=== PATIENT | female | born 1990 | race Hispanic/Latino ===

== ENCOUNTER 2019-04-17 09:20 | Inpatient (IN) | payer BC ==
[~2019-04-17] VITALS: Ht 172.7 cm; Wt 88.5 kg
[2019-04-17] MEDS ORDERED: MAGNESIUM SULFATE 1,000 ML IV PRN (09:24)
[2019-04-17] MEDS ORDERED: LACTATED RINGERS 1000ML 1,000 ML IV PRN (09:24)
[2019-04-17] MEDS ORDERED: LACTATED RINGERS 1000ML 1,000 ML IV SCH (09:24)
[2019-04-17] MEDS ORDERED: CALCIUM GLUCONATE 1 GM/10 ML VIAL IV PRN (09:30)
[2019-04-17] MEDS ORDERED: OXYTOCIN-LR 20 UNITS/1000 ML 1,000 ML IV SCH (09:30)
[2019-04-17] MEDS ORDERED: MAGNESIUM 4GM PREMIX 100ML 100 ML IV PRN (09:30)
[2019-04-17 09:59] LABS: APPEARANCE,URINE Clear (CLEAR); BILIRUBIN,URINE Negative (NEGATIVE); COLOR,URINE Yellow (YELLOW); GLUCOSE, URINE (UA) Negative (NEGATIVE); KETONES,URINE Negative (NEGATIVE); LEUKOCYTE ESTERASE ,URINE Negative (NEGATIVE); NITRATE,URINE Negative (NEGATIVE); OCCULT BLOOD,URINE Negative (NEGATIVE); PH,URINE 6.5 (5.0-8.0); PROTEIN,URINE POS 1+ mg/dL (NEGATIVE); UROBILINOGEN,URINE 0.2 mg/dL (0.2-1.0)
[2019-04-17 10:01] LABS: BASOPHILS % (AUTO) 0.6 % (0.0-5.0); HEMATOCRIT 32.9 % (36-48); LYMPHOCYTES % (AUTO) 26.7 % (21.0-51.0); MEAN CORPUSCULAR HEMOGLOBIN 25.2 pg (27.0-33.0); MEAN CORPUSCULAR HGB CONC 31.6 g/dL (32.0-36.0); MEAN CORPUSCULAR VOLUME 79.9 fL (79-99); MONOCYTES % (AUTO) 4.6 % (3.0-13.0); NEUTROPHILS % (AUTO) 66.8 % (40.0-77.0); PLATELET COUNT (AUTO) 199 K/uL (130-400); RED BLOOD CELL COUNT(AUTO) 4.12 MIL/uL (4.00-5.50); RED CELL DISTRIBUTION WIDTH 13.7 % (11.0-15.5); WHITE BLOOD COUNT (AUTO) 8.6 K/uL (4.8-10.8)
[2019-04-17 10:15] LABS: BACTERIA,URINE Few /HPF (None Seen); RBC,URINE 0-1 /HPF (0-1); WBC,URINE 0-1 /HPF (0-1)
[2019-04-17 10:28] LABS: INR 0.9 (0.85-1.15); PROTHROMBIN TIME 9.5 SEC (9.6-11.6)
[2019-04-17 10:29] LABS: CREATININE 0.8 mg/dL (0.5-1.5)
[2019-04-17 10:34] LABS: ALBUMIN 2.5 g/dL (3.5-5.0); BILIRUBIN,DIRECT 0.1 mg/dL (0.0-0.3); BILIRUBIN,TOTAL 0.1 mg/dL (0.2-1.0); TOTAL PROTEIN, SERUM 6.7 g/dL (6.0-8.3); URIC ACID 5.3 mg/dL (2.6-7.2)
[2019-04-17 11:05] LABS: PARTIAL THROMBOPLASTIN TIME 27.4 SEC (26.3-35.5)
[2019-04-17] MEDS ORDERED: MEPERIDINE-PF 25 MG/ML SYG ONE (14:26)
[2019-04-17] MEDS ORDERED: LIDOCAINE HCL 1% 20 ML VIAL ONE (14:54)
[2019-04-17] MEDS ORDERED: NALOXONE HCL 0.4 MG/1 ML ML IV PRN (15:15)
[2019-04-17] MEDS ORDERED: ROPIVACAINE 0.2% 100ML VIAL 100 ML EP SCH (15:15)
[2019-04-17] MEDS ORDERED: EPHEDRINE SULFATE 50 MG/ML AMPULE IVP PRN (15:15)
[2019-04-17] MEDS ORDERED: LACTATED RINGERS 500 ML 500 ML IV PRN (15:15)
[2019-04-17] MEDS ORDERED: PROMETHAZINE HCL 25 MG/ML 1ML AMPULE IM SCH (15:30)
[2019-04-17] MEDS ORDERED: MEPERIDINE-PF 50 MG/ML SYG IVP ONE (15:30)
[2019-04-17] MEDS ORDERED: FENTANYL CITRATE PF 50 MCG/1 ML 2ML VIAL ONE (15:31)
[2019-04-17] MEDS ORDERED: AMMONIA 1 EA AMP IH ONE ×2 (18:10→20:36)
[2019-04-17 19:30] VITALS: BP 131/76
[2019-04-17] MEDS ORDERED: BENZOCAINE/LANOLIN/ALOE VERA 60 ML AEROSOL TP PRN (19:45)
[2019-04-17] MEDS ORDERED: WITCH HAZEL 1 PAD TP PRN (19:45)
[2019-04-17] MEDS ORDERED: ACETAMINOPHEN 325 MG TAB PO PRN (19:45)
[2019-04-17] MEDS ORDERED: DIPH,PERTUSS(ACELL),TET VAC/PF 0.5 ML VIAL IM PRN (19:45)
[2019-04-17] MEDS ORDERED: LANOLIN 30GM OINTMENT TP PRN (19:45)
[2019-04-17] MEDS ORDERED: ACETAMINOPHEN-CODEINE 300/30MG TAB PO PRN (19:45)
[2019-04-17] MEDS ORDERED: EPHEDRINE SULFATE 50 MG/ML AMPULE IM PRN (20:15)
[2019-04-17 20:48] LABS: HEMATOCRIT 28.8 % (36-48); MEAN CORPUSCULAR HEMOGLOBIN 25.5 pg (27.0-33.0); MEAN CORPUSCULAR HGB CONC 32.3 g/dL (32.0-36.0); MEAN CORPUSCULAR VOLUME 79.1 fL (79-99); PLATELET COUNT (AUTO) 191 K/uL (130-400); RED BLOOD CELL COUNT(AUTO) 3.64 MIL/uL (4.00-5.50); RED CELL DISTRIBUTION WIDTH 13.7 % (11.0-15.5); WHITE BLOOD COUNT (AUTO) 23.7 K/uL (4.8-10.8)
[2019-04-17] MEDS ORDERED: METHYLERGONOVINE MALEATE 0.2 MG/1 ML ML ONE (23:42)
[2019-04-17] MEDS: IBUPROFEN 600 MG TABLET PO PRN (23:44)
[2019-04-17] MEDS ORDERED: METHYLERGONOVINE MALEATE 0.2 MG/1 ML ML IM PRN (23:45)
[2019-04-18] VITALS (10 sets, daily range): BP systolic 116–135; BP diastolic 59–90
[2019-04-18 06:38] LABS: HEMATOCRIT 22.4 % (36-48); MEAN CORPUSCULAR HEMOGLOBIN 25.7 pg (27.0-33.0); MEAN CORPUSCULAR VOLUME 77.8 fL (79-99); PLATELET COUNT (AUTO) 159 K/uL (130-400); RED BLOOD CELL COUNT(AUTO) 2.88 MIL/uL (4.00-5.50); WHITE BLOOD COUNT (AUTO) 17.7 K/uL (4.8-10.8)
[2019-04-18 06:46] LABS: CREATININE 0.8 mg/dL (0.5-1.5); POTASSIUM 4.6 mmol/L (3.5-5.1)
[2019-04-18 06:52] LABS: BILIRUBIN,TOTAL 0.1 mg/dL (0.2-1.0); TOTAL PROTEIN, SERUM 5.3 g/dL (6.0-8.3); URIC ACID 5.9 mg/dL (2.6-7.2)
[2019-04-18 06:58] LABS: INR 0.92 (0.85-1.15); PROTHROMBIN TIME 9.7 SEC (9.6-11.6)
[2019-04-18] MEDS ORDERED: PREN-196 PO (10:47)
[2019-04-18] MEDS ORDERED: SODIUM CHLORIDE 0.9% 1000ML 1,000 ML IV SCH (11:00)
[2019-04-18 11:10] LABS: HEPATITIS Bs ANTIGEN SCREEN P Negative (Negative)
--- NOTE | 2019-04-18 11:52 | NUR ---
1ST unit of blood started transfusing, witnessed by Senia Ferrer RN Addendum: 04/18/19 at 1203 by CHRIS WARE RN Amended: Links added.
[2019-04-18] MEDS: IBUPROFEN 600 MG TABLET PO PRN (13:01)
--- NOTE | 2019-04-18 14:25 | NUR ---
1ST unit of blood transfused, no reactions noted Addendum: 04/18/19 at 1455 by CHRIS WARE RN Amended: Links added.
--- NOTE | 2019-04-18 15:25 | NUR ---
vela catheter removed as per Bruno Stubbs, tip intact, pt tolerated well Addendum: 04/18/19 at 1536 by CHRIS WARE RN Amended: Links added.
--- NOTE | 2019-04-18 15:41 | NUR ---
2ND unit of blood started transfusing, witnessed by Senia Fu RN Addendum: 04/18/19 at 1550 by CHRIS WARE RN Amended: Links added.
--- NOTE | 2019-04-18 18:25 | NUR ---
2ND unit of blood transfused, no reactions noted. Addendum: 04/18/19 at 1835 by CHRIS WARE RN Amended: Links added.
[2019-04-18] MEDS: DOCUSATE SODIUM 100 MG CAP PO SCH ×2 (21:05→21:10)
[2019-04-18] MEDS: MISOPROSTOL 200 MCG TABLET VG SCH (21:30)
[2019-04-19] MEDS: MISOPROSTOL 200 MCG TABLET VG SCH (03:30)
[2019-04-19 03:32] VITALS: BP 120/63
[2019-04-19 07:07] LABS: HEMATOCRIT 28.3 % (36-48)
[2019-04-19 07:33] VITALS: BP 143/79
[2019-04-19] MEDS: DOCUSATE SODIUM 100 MG CAP PO SCH (09:12)
[2019-04-19] MEDS: IBUPROFEN 600 MG TABLET PO PRN (09:13)
[2019-04-19 11:47] VITALS: BP 135/69
--- NOTE | 2019-04-19 15:00 | NUR ---
PATIENT LEFT UNIT VIA WHEELCHAIR WITH BABY IN ARMS. PERSONAL VEHICLE USED FOR TRANSPORTATION. BABY SECURE IN CARSEAT.
== END 2019-04-19 15:00 | disposition home or self-care (01) | DRG 807 ==
LOC: OBSVTOIN 09:20 → LDH 09:20 → WSH 04-18 10:27
PROVIDERS: ADMIT Obstetrics & Gynecology; ATTEND Obstetrics & Gynecology
PROC: 10E0XZZ Delivery of Products of Conception, External Approach (ICD-10-PCS; principal; 2019-04-17)
PROC: 0W8NXZZ Division of Female Perineum, External Approach (ICD-10-PCS; 2019-04-17)
PROC: 3E0R3BZ Introduction of Anesthetic Agent into Spinal Canal, Percutaneous Approach (ICD-10-PCS; 2019-04-17)
PROC: 00HU33Z Insertion of Infusion Device into Spinal Canal, Percutaneous Approach (ICD-10-PCS; 2019-04-17)
PROC: 3E0234Z Introduction of Serum, Toxoid and Vaccine into Muscle, Percutaneous Approach (ICD-10-PCS; 2019-04-17)
PROC: 30233N1 Transfusion of Nonautologous Red Blood Cells into Peripheral Vein, Percutaneous Approach (ICD-10-PCS; 2019-04-18)
DX: O14.03 Mild to moderate pre-eclampsia, third trimester (principal); Z37.0 Single live birth; Z23 Encounter for immunization; Z3A.39 39 weeks gestation of pregnancy
CPT/HCPCS: 36415; 36430; 76805; 80053; 80076; 81001; 82948; 83735; 84550; 85014; 85018; 85025; 85027; 85370; 85384; 85610; 85730; 86592; 86850; 86900; 86901; 86922; 87340; 88307; 90715; A4314; G0378; J2175; J2210; J2590; J2795; J3010; J3475; J3490; J7120; P9016

== ENCOUNTER 2019-06-19 10:05 | Day surgery (SDC) | payer BC ==
[~2019-06-19] VITALS: Ht 170.2 cm; Wt 71.1 kg
[2019-06-19] VITALS (15 sets, daily range): BP systolic 106–151; BP diastolic 52–72
[~2019-06-19 10:05] MED LIST: PREN-196 PO
[2019-06-19] MEDS ORDERED: LIDOCAINE PF 2% 5ML ABBOJECT ONE (10:49)
[2019-06-19] MEDS ORDERED: DEXAMETHASONE SOD PHOSPHATE 10MG/ML 1ML VIAL ONE (10:49)
[2019-06-19] MEDS ORDERED: GLYCOPYRROLATE 1 MG/5 ML SYRINGE ONE (10:49)
[2019-06-19] MEDS ORDERED: PROPOFOL 10 MG/ML 20ML VIAL IV ONE (10:50)
[2019-06-19] MEDS ORDERED: NEOSTIGMINE 5MG/5ML SYR IV ONE (10:50)
[2019-06-19] MEDS ORDERED: MIDAZOLAM HCL 1 MG/ML 2ML VIAL ONE (10:50)
[2019-06-19] MEDS ORDERED: ONDANSETRON HCL 4 MG/2 ML VIAL ONE (10:50)
[2019-06-19] MEDS ORDERED: ROCURONIUM 10MG/1ML SYR 10 MG/ML ML ONE (10:50)
[2019-06-19] MEDS ORDERED: FENTANYL CITRATE PF 50 MCG/1 ML 2ML VIAL ONE ×2 (10:51→12:33)
[2019-06-19 10:58] LABS: BASOPHILS % (AUTO) 1.1 % (0.0-5.0); EOSINOPHILS % (AUTO) 5.3 % (0.0-8.0); HEMATOCRIT 37.8 % (36-48); LYMPHOCYTES % (AUTO) 37.8 % (21.0-51.0); MEAN CORPUSCULAR HEMOGLOBIN 26.2 pg (27.0-33.0); MEAN CORPUSCULAR HGB CONC 32.5 g/dL (32.0-36.0); MEAN CORPUSCULAR VOLUME 80.6 fL (79-99); MONOCYTES % (AUTO) 3.9 % (3.0-13.0); NEUTROPHILS % (AUTO) 51.8 % (40.0-77.0); PLATELET COUNT (AUTO) 226 K/uL (130-400); RED BLOOD CELL COUNT(AUTO) 4.69 MIL/uL (4.00-5.50); RED CELL DISTRIBUTION WIDTH 14.7 % (11.0-15.5); WHITE BLOOD COUNT (AUTO) 7.4 K/uL (4.8-10.8)
[2019-06-19] MEDS ORDERED: CEFAZOLIN SODIUM 1 GM VIAL IVP SCH (11:00)
[2019-06-19] MEDS ORDERED: LACTATED RINGERS 1000ML 1,000 ML IV ONE (11:01)
[2019-06-19] MEDS ORDERED: TRANEXAMIC ACID 1000MG/10ML ONE (12:51)
[2019-06-19] MEDS ORDERED: CALDOLOR 800MG+NS 250ML 250 ML IV ONE (13:27)
--- NOTE | 2019-06-19 14:30 | NUR ---
POST OP RECEIVED PT POST OP. PT WITH MILD DISCOMFORT TO ABDOMEN. PERIPAD WITH SCANT AMT OF BLOOD NOTED. PT ORIENTED TO ROOM AND CALL LIGHT WITH IN REACH. WILL CONTINUE TO MONITOR PT.
--- NOTE | 2019-06-19 15:25 | NUR ---
DISCHARGE PT AND SPOUSE GIVEN DISCHARGE INSTRUCTIONS. PT IN NO DISTRESS. PT GIVEN SCRIPT FOR MOTRIN AND TYLENOL #3. PT TAKEN OUT VIA W/C BY ALENA MONTALVO
== END 2019-06-19 15:25 | disposition home or self-care (01) ==
LOC: DAH 10:05
PROVIDERS: ATTEND Obstetrics & Gynecology
DX: N92.1 Excessive and frequent menstruation with irregular cycle (principal); Z90.89 Acquired absence of other organs; Z79.899 Other long term (current) drug therapy
CPT/HCPCS: 36415; 58558; 85025; 86850; 86900; 86901; A4213; A4215; A4221; A4222; A4223; A4351; A4663; A6260; J0690; J1100; J1741; J2001; J2250; J2405; J2704; J2710; J3010 ×2; J3490 ×2; J7030; J7120